=== PATIENT | female | born 1930 | race Two or more races ===

== ENCOUNTER 2017-06-06 08:31 | Outpatient (CLI) | payer OTHER | END 2017-06-06 08:48 | disposition home or self-care (01) | LOC: LAB 08:31 | DX: D64.89 Other specified anemias (principal); N39.0 Urinary tract infection, site not specified; R10.84 Generalized abdominal pain; E03.8 Other specified hypothyroidism; E78.4 Other hyperlipidemia; E55.9 Vitamin D deficiency, unspecified; R80.8 Other proteinuria; E11.8 Type 2 diabetes mellitus with unspecified complications; R73.09 Other abnormal glucose; D19.1 Benign neoplasm of mesothelial tissue of peritoneum; I10 Essential (primary) hypertension; E78.2 Mixed hyperlipidemia; R73.02 Impaired glucose tolerance (oral); E56.8 Deficiency of other vitamins ==

== ENCOUNTER 2017-09-17 07:57 | Outpatient (CLI) | payer OTHER | END 2017-09-17 08:07 | disposition home or self-care (01) | LOC: LAB 07:57 | DX: I11.9 Hypertensive heart disease without heart failure (principal); E11.9 Type 2 diabetes mellitus without complications; E78.2 Mixed hyperlipidemia; E03.8 Other specified hypothyroidism ==

== ENCOUNTER 2017-11-04 08:35 | Outpatient (CLI) | payer OTHER | END 2017-11-04 08:46 | disposition home or self-care (01) | LOC: LAB 08:35 | DX: D64.89 Other specified anemias (principal); N39.0 Urinary tract infection, site not specified; E03.8 Other specified hypothyroidism; E78.4 Other hyperlipidemia; R80.8 Other proteinuria; E11.9 Type 2 diabetes mellitus without complications; I11.9 Hypertensive heart disease without heart failure ==

== ENCOUNTER 2018-04-14 10:40 | Outpatient (CLI) | payer OTHER | END 2018-04-14 10:56 | disposition home or self-care (01) | LOC: LAB 10:40 | DX: D50.8 Other iron deficiency anemias (principal); E03.8 Other specified hypothyroidism; E78.2 Mixed hyperlipidemia; I11.9 Hypertensive heart disease without heart failure; E56.8 Deficiency of other vitamins; N39.0 Urinary tract infection, site not specified; Z12.11 Encounter for screening for malignant neoplasm of colon; R19.5 Other fecal abnormalities; E55.9 Vitamin D deficiency, unspecified; N19 Unspecified kidney failure; E11.9 Type 2 diabetes mellitus without complications; R80.8 Other proteinuria; C18.8 Malignant neoplasm of overlapping sites of colon; K92.1 Melena ==

== ENCOUNTER 2018-07-24 08:29 | Outpatient (CLI) | payer OTHER | END 2018-07-24 08:43 | disposition home or self-care (01) | LOC: LAB 08:29 | DX: D50.8 Other iron deficiency anemias (principal); E03.8 Other specified hypothyroidism; E78.2 Mixed hyperlipidemia; I11.9 Hypertensive heart disease without heart failure; E56.8 Deficiency of other vitamins; N39.0 Urinary tract infection, site not specified; Z12.11 Encounter for screening for malignant neoplasm of colon; E55.9 Vitamin D deficiency, unspecified; N19 Unspecified kidney failure; E11.9 Type 2 diabetes mellitus without complications; R80.8 Other proteinuria; C18.0 Malignant neoplasm of cecum; K92.1 Melena ==

== ENCOUNTER 2018-11-03 08:28 | Outpatient (CLI) | payer OTHER | END 2018-11-03 08:41 | disposition home or self-care (01) | LOC: LAB 08:28 | DX: D50.8 Other iron deficiency anemias (principal); E03.8 Other specified hypothyroidism; E78.2 Mixed hyperlipidemia; I11.9 Hypertensive heart disease without heart failure; E56.8 Deficiency of other vitamins; N39.0 Urinary tract infection, site not specified; Z12.11 Encounter for screening for malignant neoplasm of colon; E55.9 Vitamin D deficiency, unspecified; N19 Unspecified kidney failure; E11.9 Type 2 diabetes mellitus without complications; R80.8 Other proteinuria; C18.0 Malignant neoplasm of cecum; K92.1 Melena ==

== ENCOUNTER 2019-02-24 12:32 | Emergency (ER) | payer OTHER ==
[~2019-02-24] VITALS: Ht 152.4 cm; Wt 57.6 kg
[2019-02-24] MEDS ORDERED: METOPROLOL ER-1 EACH PO (13:08)
[2019-02-24] MEDS ORDERED: ADULT LOW DOSE81 M1 PO (13:09)
== END 2019-02-24 15:13 | disposition home or self-care (01) ==
LOC: ER 12:32
DX: S52.592A Other fractures of lower end of left radius, initial encounter for closed fracture (principal); W18.09XA Striking against other object with subsequent fall, initial encounter; Y93.89 Activity, other specified; Y92.481 Parking lot as the place of occurrence of the external cause; Y99.8 Other external cause status

== ENCOUNTER 2019-04-02 20:52 | Emergency (ER) | payer OTHER ==
[~2019-04-02] VITALS: Ht 152.4 cm; Wt 58.1 kg
[~2019-04-02 20:52] MED LIST: ADULT LOW DOSE81 M1 PO; METOPROLOL ER-1 EACH PO
== END 2019-04-03 01:29 | disposition home or self-care (01) ==
LOC: ER 20:52
DX: R60.0 Localized edema (principal)